=== PATIENT | male | born 1955 | race Caucasian/White ===

== ENCOUNTER 2024-06-04 14:20 | Emergency (ER) | payer MEDICARE ==
[~2024-06-04] VITALS: Ht 167.6 cm; Wt 98.9 kg
[~2024-06-04 14:20] MED LIST: Z LEVOTHROID PO; Z.0.PRILOSEC20 MG PO; Z.0.PRINIVIL20 MG PO; Z.0.ZOCOR40 MG PO
[2024-06-04 14:33] VITALS: TEMP 98.8
[2024-06-04] MEDS: KETOROLAC TROMETHAMINE 30 MG/ML VIAL IV ONE (14:55)
[2024-06-04 19:31] VITALS: PULSE 65; RESP 18; O2SAT 95
[2024-06-04 20:09] VITALS: TEMP 98.7
== END 2024-06-04 20:14 | disposition short-term general hospital (02) ==
LOC: FSED 14:29
DX: R10.9 Unspecified abdominal pain (principal); N13.30 Unspecified hydronephrosis; R73.9 Hyperglycemia, unspecified; R94.4 Abnormal results of kidney function studies; I10 Essential (primary) hypertension; E03.9 Hypothyroidism, unspecified; K21.9 Gastro-esophageal reflux disease without esophagitis
CPT/HCPCS: 74176; 80048; 80076; 81003; 85025; 99284; J1885